=== PATIENT | female | born 1955 | race Caucasian/White ===

== ENCOUNTER 2021-06-17 13:26 | Outpatient (CLI) | payer OTHER | END 2021-06-17 13:27 | disposition home or self-care (01) | LOC: NAV RAD 13:26 | PROVIDERS: ATTEND Family Medicine | DX: M25.561 Pain in right knee (principal); M17.11 Unilateral primary osteoarthritis, right knee ==

== ENCOUNTER 2022-10-29 21:06 | Emergency (ER) | payer MEDICARE ==
[2022-10-29] MEDS ORDERED: traMADol HCl 50 MG TAB ONE (21:33)
== END 2022-10-29 23:20 | disposition home or self-care (01) ==
LOC: NAV ERS 21:06
DX: S80.01XA Contusion of right knee, initial encounter (principal); M25.461 Effusion, right knee; E11.9 Type 2 diabetes mellitus without complications; I10 Essential (primary) hypertension; W17.89XA Other fall from one level to another, initial encounter; Z79.82 Long term (current) use of aspirin; Z79.899 Other long term (current) drug therapy